=== PATIENT | male | born 1965 | race Caucasian/White ===

== ENCOUNTER 2023-03-29 12:41 | Inpatient (IN) | payer MEDICAID, OTHER ==
[~2023-03-29] VITALS: Ht 177.8 cm; Wt 99.0 kg
[2023-03-29 13:57] LABS: Basophils # (auto) 0.1 10 ^3/uL (0-0.2); Basophils % (auto) 0.9 % (0.0-2.0); Eosinophils # (auto) 0.2 10 ^3/uL (0-0.8); Eosinophils % (auto) 2.3 % (0.0-7.0); Hematocrit 42.7 % (41.0-53.0); Hemoglobin 14.6 g/dL (13.5-17.5); Lymphocytes % (auto) 25.5 % (10.0-50.0); Mean Corpuscular Hemoglobin 33.4 pg (28.0-32.0); Mean Corpuscular Hgb Conc. 34.1 g/dL (32.0-36.0); Mean Corpuscular Volume 98.1 fL (80.0-100.0); Monocytes # (auto) 0.8 10 ^3/uL (0-1.3); Monocytes % (auto) 10.7 % (0.0-12.0); Neutrophils # (auto) 4.7 10 ^3/uL (1.6-8.6); Neutrophils % (auto) 60.6 % (37.0-80.0); Nucleated Red Blood Cells % 0.4 %; Red Blood Cells 4.36 10^6/uL (4.5-5.90); Red Cell Distribution Width 15.4 % (11.8-14.3); White Blood Cell 7.8 10^3/uL (4.4-10.8)
[2023-03-29 14:34] LABS: Albumin 2.8 g/dL (3.4-5.0); Calcium 8.5 mg/dL (8.5-10.1)
[2023-03-29 14:38] LABS: BUN/Creatinine Ratio 14.4 (10.0-20.0); Bilirubin, Total 3.1 mg/dL (0.2-1.0); Total Protein 7.5 g/dL (6.4-8.2)
[2023-03-29 14:39] LABS: INR 1.4 (0.9-1.15); Partial Thromboplastin Time 34.2 SEC (24.5-34.5)
[2023-03-29] MEDS ORDERED: DOCUSATE SOD 100 MG CAP PO PRN (20:30)
[2023-03-29] MEDS ORDERED: IBUPROFEN 600 MG TAB PO PRN (20:30)
[2023-03-29] MEDS ORDERED: ONDANSETRON HCL 4 MG/2 ML VIAL IV PRN (20:30)
[2023-03-29] MEDS ORDERED: HYDROcodone-ACET 5/325MG TAB PO PRN (20:30)
[2023-03-29] MEDS: SODIUM CHLORIDE 0.9% 1,000 ML IV SCH (22:24)
[2023-03-29] MEDS: SODIUM CHLOR 0.9% PF (SALINE LOCK) 10ML VIAL/SYR IV SCH (22:24)
[2023-03-29] MEDS: PROPRANOLOL HCL 20 MG TAB PO SCH (22:25)
[2023-03-29 22:48] LABS: Urine Bacteria NONE SEEN /hpf (None Seen); Urine Blood Negative /uL (Negative); Urine Mucus FEW (None Seen); Urine Specific Gravity 1.032 (1.001-1.035); Urine WBC 9 /hpf (0 - 3)
[2023-03-29 23:07] LABS: Alcohol, Urine < 3.0 mg/dL (0-10); Barbiturate Scree,Urine NEGATIVE (NEGATIVE); Benzodiazephine Screen, Urine NEGATIVE (NEGATIVE); Cocaine Screen, Urine NEGATIVE (NEGATIVE); Opiate Scree,Urine NEGATIVE (NEGATIVE); Phencyclidine Screen, Urine NEGATIVE (NEGATIVE)
[2023-03-29 23:14] LABS: Amphetamine Screen, Urine POSITIVE (NEGATIVE); Cannabinoid Screen, Urine POSITIVE (NEGATIVE)
[2023-03-29] MEDS ORDERED: IOHEXOL 350 MG/ML 100ML IJ ONE (23:18)
[2023-03-30 00:11] LABS: Bilirubin, Direct 1.1 mg/dL (0-0.2); Bilirubin, Total 2.4 mg/dL (0.2-1.0)
[2023-03-30 04:36] LABS: Basophils # (auto) 0.1 10 ^3/uL (0-0.2); Basophils % (auto) 0.9 % (0.0-2.0); Eosinophils # (auto) 0.5 10 ^3/uL (0-0.8); Eosinophils % (auto) 5.4 % (0.0-7.0); Hematocrit 43.5 % (41.0-53.0); Hemoglobin 14.9 g/dL (13.5-17.5); Lymphocytes # (auto) 2.3 10 ^3/uL (0.4-5.4); Mean Corpuscular Hemoglobin 33.6 pg (28.0-32.0); Mean Corpuscular Hgb Conc. 34.3 g/dL (32.0-36.0); Mean Corpuscular Volume 98.1 fL (80.0-100.0); Monocytes # (auto) 0.9 10 ^3/uL (0-1.3); Monocytes % (auto) 10.2 % (0.0-12.0); Neutrophils # (auto) 5.1 10 ^3/uL (1.6-8.6); Neutrophils % (auto) 57.5 % (37.0-80.0); Nucleated Red Blood Cells % 0.2 %; Red Blood Cells 4.43 10^6/uL (4.5-5.90); Red Cell Distribution Width 15.3 % (11.8-14.3); White Blood Cell 8.9 10^3/uL (4.4-10.8)
[2023-03-30] MEDS: HYDROcodone-ACET 5/325MG TAB PO PRN ×2 (04:45→15:49)
[2023-03-30 04:51] LABS: Albumin 3.1 g/dL (3.4-5.0); Calcium 8.8 mg/dL (8.5-10.1)
[2023-03-30 04:54] LABS: BUN/Creatinine Ratio 17.6 (10.0-20.0)
[2023-03-30 04:57] LABS: Bilirubin, Total 2.9 mg/dL (0.2-1.0); Total Protein 8.5 g/dL (6.4-8.2)
[2023-03-30] MEDS: SODIUM CHLOR 0.9% PF (SALINE LOCK) 10ML VIAL/SYR IV SCH ×3 (06:09→22:00)
[2023-03-30] MEDS ORDERED: ENOXAPARIN SOD 40 MG/0.4 ML SYRINGE SC SCH (10:00)
[2023-03-30] MEDS ORDERED: SPIRONOLACTONE 25 MG TAB PO SCH (10:00)
[2023-03-30] MEDS: FUROSEMIDE 40 MG/4 ML VIAL IV SCH (10:56)
[2023-03-30] MEDS: ENOXAPARIN SOD 40 MG/0.4 ML SYRINGE SC SCH (10:57)
[2023-03-30] MEDS: PROPRANOLOL HCL 20 MG TAB PO SCH ×2 (10:57→22:00)
[2023-03-30] MEDS: FOLIC ACID 1 MG TAB PO SCH (10:58)
[2023-03-30] MEDS: THIAMINE HCL 100 MG TAB PO SCH (10:58)
[2023-03-30] MEDS: SPIRONOLACTONE 25 MG TAB PO SCH (10:59)
[2023-03-30] MEDS: SODIUM CHLORIDE 0.9% 1,000 ML IV SCH (13:50)
[2023-03-30] MEDS: ONDANSETRON HCL 4 MG/2 ML VIAL IV PRN ×2 (14:01→19:35)
[2023-03-30] MEDS: MORPHINE SULFATE INJ 2 MG/ml SYRG IV PRN ×2 (14:02→19:36)
[2023-03-30 23:12] VITALS: BP 106/59
[2023-03-30 23:21] VITALS: BP 106/59
[2023-03-31 05:00] VITALS: BP 119/60
[2023-03-31] MEDS: SODIUM CHLORIDE 0.9% 1,000 ML IV SCH (05:50)
[2023-03-31] MEDS: SODIUM CHLOR 0.9% PF (SALINE LOCK) 10ML VIAL/SYR IV SCH ×3 (06:00→23:01)
[2023-03-31 09:00] VITALS: BP 129/63
[2023-03-31] MEDS: SPIRONOLACTONE 25 MG TAB PO SCH (09:58)
[2023-03-31] MEDS: PROPRANOLOL HCL 20 MG TAB PO SCH ×2 (09:59→22:00)
[2023-03-31] MEDS: FOLIC ACID 1 MG TAB PO SCH (09:59)
[2023-03-31] MEDS: THIAMINE HCL 100 MG TAB PO SCH (10:00)
[2023-03-31] MEDS: FUROSEMIDE 40 MG/4 ML VIAL IV SCH (10:00)
[2023-03-31] MEDS: ENOXAPARIN SOD 40 MG/0.4 ML SYRINGE SC SCH (10:00)
[2023-03-31 12:36] LABS: Hepatitis A Ab IgM Negative
[2023-03-31 12:37] LABS: Hepatitis B Core IgM Negative
[2023-03-31 12:43] LABS: Hepatitis C Antibody Positive (Negative)
[2023-03-31 13:00] VITALS: BP 118/59
[2023-03-31 17:00] VITALS: BP 106/50
[2023-03-31] MEDS: MORPHINE SULFATE INJ 2 MG/ml SYRG IV PRN (18:17)
[2023-03-31 22:00] VITALS: BP 99/57
[2023-04-01 05:00] VITALS: BP 104/55
[2023-04-01 06:14] LABS: Albumin 2.5 g/dL (3.4-5.0); Calcium 8.5 mg/dL (8.5-10.1); Potassium 4.2 mmol/L (3.5-5.1)
[2023-04-01 06:17] LABS: BUN/Creatinine Ratio 12.6 (10.0-20.0); Bilirubin, Total 2.1 mg/dL (0.2-1.0); Total Protein 7.3 g/dL (6.4-8.2)
[2023-04-01] MEDS: SODIUM CHLOR 0.9% PF (SALINE LOCK) 10ML VIAL/SYR IV SCH ×3 (06:59→23:21)
[2023-04-01 09:00] VITALS: BP 132/51
[2023-04-01] MEDS: ceFAZolin 2 GM/D5W100ml 100 ML IV SCH ×3 (09:04→23:21)
[2023-04-01] MEDS: ENOXAPARIN SOD 40 MG/0.4 ML SYRINGE SC SCH (09:54)
[2023-04-01] MEDS: FOLIC ACID 1 MG TAB PO SCH (09:55)
[2023-04-01] MEDS: FUROSEMIDE 40 MG/4 ML VIAL IV SCH (09:55)
[2023-04-01] MEDS: PROPRANOLOL HCL 20 MG TAB PO SCH ×2 (09:55→22:00)
[2023-04-01] MEDS: SPIRONOLACTONE 25 MG TAB PO SCH (09:56)
[2023-04-01] MEDS: THIAMINE HCL 100 MG TAB PO SCH (09:56)
[2023-04-01 09:57] VITALS: BP 135/68
[2023-04-01 13:10] VITALS: BP 98/51
[2023-04-01] MEDS ORDERED: PROP1TAB53 PO (15:02)
[2023-04-01] MEDS ORDERED: SPIR25TA PO (15:02)
[2023-04-01] MEDS ORDERED: FURO1TAB31 PO (15:02)
[2023-04-01] MEDS ORDERED: CEPH250C PO (15:09)
[2023-04-01 16:23] VITALS: BP 101/61
[2023-04-01 22:00] VITALS: BP 108/52
[2023-04-02 05:00] VITALS: BP 114/57
[2023-04-02] MEDS: ceFAZolin 2 GM/D5W100ml 100 ML IV SCH ×2 (05:40→14:00)
[2023-04-02] MEDS: SODIUM CHLOR 0.9% PF (SALINE LOCK) 10ML VIAL/SYR IV SCH ×2 (05:41→10:44)
[2023-04-02 08:31] VITALS: BP 109/57
[2023-04-02] MEDS: PROPRANOLOL HCL 20 MG TAB PO SCH (10:00)
[2023-04-02] MEDS: FOLIC ACID 1 MG TAB PO SCH (10:40)
[2023-04-02] MEDS: THIAMINE HCL 100 MG TAB PO SCH (10:40)
[2023-04-02] MEDS: FUROSEMIDE 40 MG/4 ML VIAL IV SCH (10:41)
[2023-04-02] MEDS: ENOXAPARIN SOD 40 MG/0.4 ML SYRINGE SC SCH (10:41)
[2023-04-02] MEDS: SPIRONOLACTONE 25 MG TAB PO SCH (10:41)
[2023-04-02 12:37] VITALS: BP 125/61
[2023-04-02 12:58] VITALS: BP 109/57
== END 2023-04-02 14:30 | disposition home or self-care (01) | DRG 280 ==
LOC: ER 12:41 → TELE 22:02 → TELE-CENTR 03-30 21:25
PROVIDERS: ADMIT Internal Medicine; ATTEND Internal Medicine
DX: K70.30 Alcoholic cirrhosis of liver without ascites (principal); L03.115 Cellulitis of right lower limb; I85.10 Secondary esophageal varices without bleeding; K80.20 Calculus of gallbladder without cholecystitis without obstruction; I10 Essential (primary) hypertension; R16.1 Splenomegaly, not elsewhere classified; F15.10 Other stimulant abuse, uncomplicated; B19.20 Unspecified viral hepatitis C without hepatic coma; R74.8 Abnormal levels of other serum enzymes; M79.89 Other specified soft tissue disorders; F12.90 Cannabis use, unspecified, uncomplicated; R79.89 Other specified abnormal findings of blood chemistry; R79.1 Abnormal coagulation profile; F17.210 Nicotine dependence, cigarettes, uncomplicated; Z82.0 Family history of epilepsy and other diseases of the nervous system; Z82.49 Family history of ischemic heart disease and other diseases of the circulatory system; Z83.3 Family history of diabetes mellitus
CPT/HCPCS: 36415; 71045; 71275; 74176; 76705; 80053; 80074; 80307; 81001; 82105; 82247; 82248; 83735; 83880; 84484; 85025; 85379; 85610; 85730; 87040; 93005; 93925; 93970; 96372; 96374; G0378; J2405